=== PATIENT | male | born 1980 | race Caucasian/White ===

== ENCOUNTER 2016-10-30 23:07 | Emergency (ER) | payer MEDICAID ==
[~2016-10-30] VITALS: Ht 175.3 cm; Wt 65.4 kg
[2016-10-30 23:08] VITALS: BP 152/93
[2016-10-31] MEDS ORDERED: AMOXICILLIN/CLAV 875-125MG TABLET PO ONE (00:30)
== END 2016-10-31 00:22 | disposition home or self-care (01) ==
LOC: ED 10-31 00:16
DX: L76.82 Other postprocedural complications of skin and subcutaneous tissue (principal); L03.011 Cellulitis of right finger
CPT/HCPCS: 99283

== ENCOUNTER 2018-08-19 13:25 | Emergency (ER) | payer MEDICAID ==
[~2018-08-19] VITALS: Ht 177.8 cm; Wt 66.6 kg
[~2018-08-19 13:25] MED LIST: [UNRECOGNIZED DRUG - OTHER]
[2018-08-19] MEDS ORDERED: ACETAMINOPHEN 500 MG TABLET ONE (14:18)
[2018-08-19] MEDS ORDERED: KETOROLAC 30 MG/1 ML ONE (14:18)
[2018-08-19 14:23] LABS: BASOPHILS # (AUTO) 0.02 x10^3/uL (0-0.1); BASOPHILS % (AUTO) 0 % (0-1); EOSINOPHILS # (AUTO) 0.01 x10^3/uL (0-0.4); EOSINOPHILS % (AUTO) 0 % (1-7); LYMPHOCYTES # (AUTO) 1.46 x10^3/uL (1-3.4); LYMPHOCYTES % (AUTO) 27 % (22-44); MD NO; MEAN CORPUSCULAR HEMOGLOBIN 30.2 pg (27.5-34.5); MEAN CORPUSCULAR HGB CONC 33.5 g/dL (33.2-36.2); MEAN CORPUSCULAR VOLUME 90.2 fL (81-97); MEAN PLATELET VOLUME 7.7 fL (7.4-10.4); MONOCYTES # (AUTO) 0.31 x10^3/uL (0.2-0.8); MONOCYTES % (AUTO) 6 % (2-9); NEUTROPHILS % (AUTO) 67 % (42-75); PLATELET COUNT 223 x10^3/uL (130-400); RED BLOOD COUNT 5.27 x10^6/uL (4.38-5.82)
[2018-08-19 14:30] LABS: ALBUMIN 4.3 g/dL (3.4-5.0); ANION GAP 4 mmol/L (5-15); CALCIUM 9.1 mg/dL (8.5-10.1); CHLORIDE 106 mmol/L (98-107); CREATININE 1.07 mg/dL (0.7-1.3)
[2018-08-19] MEDS ORDERED: KETOROLAC 30 MG/1 ML IM ONE (14:30)
[2018-08-19] MEDS ORDERED: ACETAMINOPHEN 500 MG TABLET PO ONE (14:30)
[2018-08-19 15:19] VITALS: BP 143/86
--- NOTE | 2018-08-19 15:20 | NUR ---
Patient/Caregiver given discharge instructions and they have confirmed that they understand the instructions. Patient ambulatory with steady gait. Pt left with all personal belongings.
== END 2018-08-19 15:21 | disposition home or self-care (01) ==
LOC: ED 14:31
DX: R07.89 Other chest pain (principal); R05 Cough; F17.200 Nicotine dependence, unspecified, uncomplicated; Z21 Asymptomatic human immunodeficiency virus [HIV] infection status
CPT/HCPCS: 36415; 71045; 80048; 82040; 85025; 93005; 96372; 99284; J1885